=== PATIENT | male | born 1950 | race Caucasian/White ===

== ENCOUNTER 2019-09-11 10:13 | Day surgery (SDC) | payer MEDICARE ==
[2019-09-11] VITALS (13 sets, daily range): BP systolic 112–140; BP diastolic 68–96
[~2019-09-11] VITALS: Ht 188 cm; Wt 105.2 kg
[2019-09-11] MEDS ORDERED: ATEN-169 PO (10:45)
[2019-09-11] MEDS ORDERED: ASPI-611 PO (10:45)
[2019-09-11] MEDS ORDERED: DILT-102 PO (10:45)
[2019-09-11] MEDS ORDERED: LAN0.125T PO (10:45)
[2019-09-11] MEDS ORDERED: iohexol 350 MG/ML 50ML vial IV ONE (10:49)
[2019-09-11] MEDS ORDERED: fentaNYL/PF 50MCG/1 ML 2ML syringe ONE (10:49)
[2019-09-11] MEDS ORDERED: LIDOcaine 1% (10mg/ml)w/preservative injection 20ml MDV ONE (10:49)
[2019-09-11] MEDS ORDERED: midazolam 2 mg/2 ml injection ONE (10:49)
[2019-09-11] MEDS ORDERED: iohexol 350MG/ML 100ml bottle IV ONE (10:50)
[2019-09-11] MEDS ORDERED: diphenhydrAMINE 25mg capsule PO PRN (11:10)
[2019-09-11] MEDS ORDERED: diphenhydrAMINE 25mg capsule PO ONE (11:10)
[2019-09-11] MEDS ORDERED: LORazepam 0.5 MG tablet PO PRN ×2 (11:10)
[2019-09-11] MEDS ORDERED: normal saline 1,000 ML IV SCH (11:10)
[2019-09-11] MEDS ORDERED: nitroGLYCERIN 0.4mg SUBLingual tab SL PRN ×2 (11:10→12:25)
[2019-09-11 11:28] LABS: BASOPHILS # (AUTO) 0.1 X10'3 (0-0.2); BASOPHILS % (AUTO) 0.7 % (0-1); EOSINOPHILS # (AUTO) 0.4 X10'3 (0-0.9); EOSINOPHILS % (AUTO) 5.2 % (0-6); HEMATOCRIT 39.1 % (42.0-52.0); HEMOGLOBIN 12.2 g/dl (14.0-17.9); LYMPHOCYTES # (AUTO) 1.5 X10'3 (1.1-4.8); LYMPHOCYTES % (AUTO) 20.5 % (21-51); MEAN CORPUSCULAR HEMOGLOBIN 23.8 PG (27.0-31.0); MEAN CORPUSCULAR HGB CONC 31.2 g/dL (33.0-36.5); MEAN CORPUSCULAR VOLUME 76.2 FL (78-98); MEAN PLATELET VOLUME 8.5 FL (7.4-10.4); MONOCYTES % (AUTO) 12.7 % (2-12); NEUTROPHILS # (AUTO) 4.6 X10'3 (1.8-7.7); NEUTROPHILS % (AUTO) 60.9 % (42-75); PLATELET COUNT 321 X10'3 (140-440); RED BLOOD COUNT 5.13 X10'6 (4.70-6.10); RED CELL DISTRIBUTION WIDTH 17.8 % (11.5-14.5); WHITE BLOOD COUNT 7.5 X10'3 (4.5-11.0)
[2019-09-11 11:40] LABS: PARTIAL THROMBOPLASTIN TIME 29 SECONDS (22-32)
[2019-09-11] MEDS ORDERED: atropine 0.1mg/ml 10ml syringe ONE (11:40)
[2019-09-11 11:49] LABS: ALBUMIN 3.6 G/DL (3.4-5.0); ANION GAP 9 (8-16); BLOOD UREA NITROGEN 18 MG/DL (7-18); BUN/CREATININE RATIO 14.6 (5.4-32.0); CALCIUM 8.5 MG/DL (8.5-10.1); CHLORIDE 109 MMOL/L (99-107); CREATININE 1.23 MG/DL (0.60-1.10); GLUCOSE 90 MG/DL (70-104); SODIUM 143 MMOL/L (135-145); TOTAL CARBON DIOXIDE 25.1 MMOL/L (24-32); eGFR 59 ML/MIN
[2019-09-11] MEDS ORDERED: normal saline 1000ml 1,000 ML IV SCH (12:25)
[2019-09-11] MEDS ORDERED: proCHLORperazine 10 MG/2 ml inj IV PRN (12:25)
[2019-09-11] MEDS ORDERED: ondansetron/PF 4mg/2ml inj IV PRN (12:25)
[2019-09-11] MEDS ORDERED: OXAZEpam 15mg capsule PO PRN (12:25)
[2019-09-11] MEDS ORDERED: HYDROcodone/acetaminophen 5mg/325mg tablet PO PRN (12:25)
[2019-09-11] MEDS ORDERED: HYDROcodone/acetaminophen 10/325mg tab PO PRN (12:25)
[2019-09-12 11:10] LABS: PSA, FREE 0.53 ng/mL
[2019-09-12 15:09] LABS: % FREE PSA 40.8 % (.)
== END 2019-09-11 18:30 | disposition home or self-care (01) ==
LOC: SSTAY O 10:13 → EDSEX 12:30 → SSTAY O 18:30
PROVIDERS: ATTEND Internal Medicine Cardiovascular Disease
DX: R94.39 Abnormal result of other cardiovascular function study (principal); I25.10 Atherosclerotic heart disease of native coronary artery without angina pectoris; I10 Essential (primary) hypertension; E78.5 Hyperlipidemia, unspecified; I48.91 Unspecified atrial fibrillation; D64.9 Anemia, unspecified; Z79.899 Other long term (current) drug therapy; R06.02 Shortness of breath; R94.8 Abnormal results of function studies of other organs and systems
CPT/HCPCS: 36415; 71046; 80048; 80162; 83880; 84153; 84154; 85025; 85610; 85730; 93458; 99152; 99153; C1769; J0461; J1644; J2001; J2250; J3010; J7030; Q0163; Q9967; A4620; C1760